=== PATIENT | male | born 1970 | race Caucasian/White ===

== ENCOUNTER → 2021-04-03 | Outpatient (REF) ==
--- NOTE | 2021-04-03 13:46 | REP ---
INDICATION: BACK PAIN. COMPARISON: None. TECHNIQUE: Five views FINDINGS: Normal alignment and bone texture paired no fractures. Spina bifida occulta L5-S1 level. Mild facet hypertrophy. Narrowing L4-5 disc space. IMPRESSION: Narrowing L4-5 disc space. Spina bifida occulta L5-S1 level. Mild facet hypertrophy. <Electronically signed by Cole Vale > 04/03/21 [id number]
== END ==
LOC: M PLAIMG 12:59
PROVIDERS: ATTEND Internal Medicine
DX: M54.5 Low back pain (principal)